=== PATIENT | female | born 1960 | race Caucasian/White ===

== ENCOUNTER → 2018-03-11 13:42 | Outpatient (CLI) | payer OTHER, SELFPAY ==
--- NOTE | 2018-03-11 15:23 | XR_ITS ---
XR knee RT 4V HISTORY: Knee pain ITS.REASON: pain ORDERING PHYSICIAN: Jaylene Padgett PATIENT AGE: 57 years COMPARISON: 08/16/2015 FINDINGS: There are severe osteoarthritic changes of the medial compartment with moderate osteoarthritic change of the lateral compartment and patellofemoral joint. There is loss of the joint space medially with prominent osteophytes. Small osteophyte is present along the lateral tibial plateau and lateral femoral condyle. No fracture or dislocation. No lytic or blastic change. IMPRESSION: Severe osteoarthritis of the right knee
--- NOTE | 2018-03-11 15:23 | XR_ITS ---
EXAM: XR lumbar spine 2-3V HISTORY: Low back pain ITS.REASON: pain ORDERING PHYSICIAN: Jaylene Padgett PATIENT AGE: 57 years FINDINGS: Normal alignment. No fracture or dislocation. Mild facet arthritic changes are present at L5-S1 on the left. There are small anterior osteophytes involving the lumbar vertebra. IMPRESSION: Mild lumbar spondylosis with facet arthritic change and small endplate osteophytes. No significant change from 08/07/2016
[2018-03-11 16:09] LABS: Hemoglobin A1C 5.4 % (0.0-7.0)
== END ==
PROVIDERS: Visit Provider Nurse Practitioner Family
DX: N23 Unspecified renal colic (principal); R53.83 Other fatigue; M17.11 Unilateral primary osteoarthritis, right knee; M25.561 Pain in right knee; M54.9 Dorsalgia, unspecified
CPT/HCPCS: 36415; 72100; 73564; 83036; 87077; 87086; 87088; 87186

== ENCOUNTER → 2018-03-19 15:30 | Outpatient (CLI) | payer OTHER, SELFPAY ==
--- NOTE | 2018-03-19 15:32 | US_ITS ---
US extremity RT limited CLINICAL INDICATION: ITS.REASON: pain ORDERING PHYSICIAN: Jaylene Padgett PATIENT AGE: 57 years COMPARISON: 03/11/2018 FINDINGS: General survey is performed of both the anterior and posterior aspect of the knee showing no obvious fluid collection. No obvious soft tissue mass or other significant anomalies. IMPRESSION: Negative limited ultrasound of the left knee. No Batres's cyst or other fluid collection evident
== END ==
PROVIDERS: Family Provider Physician Assistant; PCP Nurse Practitioner Family; Visit Provider Nurse Practitioner Family
DX: M71.21 Synovial cyst of popliteal space [Baker], right knee (principal)
CPT/HCPCS: 76882

== ENCOUNTER → 2018-04-15 09:39 | Outpatient (CLI) | payer OTHER, SELFPAY ==
--- NOTE | 2018-04-15 10:24 | NVE_ITS ---
Venous Exam Indications: 729.5 Pain in limb. IMPRESSIONS No evidence of deep or superficial vein thrombosis involving the right lower extremity History: Right lower extremity pain. Risk factors: Current tobacco use. Hypertension. Obese. Patient denies trauma. States that she has a sharp pain in the popliteal area that radiates into mid posterior thigh. She says this pain has been gradually worsening over the course of 3 months. She works on her feet long hours and feels this makes the pain worse. Medications: Aspirin, 81 mg daily. Right lower extremity venous duplex evaluation. Doppler flow study including spectral analysis, color and ferguson scale imaging. Location: Vascular laboratory. Patient status: Outpatient. CRITICAL FINDINGS - Reported to: [facility] office - Read back and verified. - 04/15/18 - 11:00 - RLE negative for DVT or SVT Tables: Venous flow and imaging: + +-------+ + Location Overall Flow properties + +-------+ + Right common femoral Patent Normal phasicity; spontaneous; normal augmentation; compressible + +-------+ + Right saphenofemoral junction Patent Compressible + +-------+ + Right profunda femoral Patent Compressible + +-------+ + Right femoral Patent Normal phasicity; spontaneous; normal augmentation; compressible + +-------+ + Right greater saphenous Patent Normal phasicity; spontaneous; normal augmentation; compressible + +-------+ + Right popliteal Patent Normal phasicity; spontaneous; normal augmentation; compressible + +-------+ + Right posterior tibial Patent Compressible + +-------+ + Right peroneal Patent Compressible + +-------+ + Right gastrocnemius Patent Compressible + +-------+ + Right soleal Patent Compressible + +-------+ + (Report amended ) Electronically signed by: Lyle Arguello [id number]
== END ==
PROVIDERS: PCP Physician Assistant; Visit Provider Physician Assistant
DX: R10.9 Unspecified abdominal pain (principal); M25.861 Other specified joint disorders, right knee
CPT/HCPCS: 87086; 93971

== ENCOUNTER → 2018-04-28 08:06 | Outpatient (CLI) | payer OTHER, SELFPAY ==
--- NOTE | 2018-04-28 08:10 | MR_ITS ---
MR knee RT wo con HISTORY: ITS.REASON: swelling and pain behind right knee ORDERING PHYSICIAN: HARSHA Prieto PATIENT AGE: 57 years Comparison: 03/11/2018 TECHNIQUE: Standard multiplanar multiecho sequences are performed without contrast. FINDINGS: Motion artifact somewhat obscures fine detail. The anterior cruciate ligament is not visualized consistent with tear of the ACL. The posterior cruciate ligament and collateral ligaments have an unremarkable appearance. There are severe osteoarthritic changes of all 3 compartments greater in the medial compartment with severe thinning of the medial meniscus laterally with diffuse increased T2 signal of the body of the lateral meniscus but no definite meniscal tear. The patellar tendon and quadriceps tendon are intact. There is some thinning of the patellar cartilage consistent with chondromalacia patella with mild lateral patellar subluxation. There are severe osteoarthritic changes of the medial compartment with marked decrease in the joint space and osteosclerosis. Osteophyte formation is present at the medial and lateral femoral condyles is a prominent osteophyte projecting off of the posterior aspect of the proximal tibia toward the medial aspect of the medial femoral condyle as seen on the radiograph. There is a small knee joint effusion with small Batres's cyst. IMPRESSION: 1. Osteoarthritic changes involving all 3 compartments most severe at the medial compartment with associated knee joint effusion mainly in the suprapatellar region. 2. Suspect chronic tear of the ACL. 3. Thinning of the body medial meniscus with diffuse increased T2 signal but no definite tear. 4. Chondromalacia patella with mild lateral subluxation of the patella
== END ==
PROVIDERS: Family Provider Physician Assistant; PCP Physician Assistant; Visit Provider Physician Assistant
DX: M25.861 Other specified joint disorders, right knee (principal)
CPT/HCPCS: 73721

== ENCOUNTER → 2018-08-22 08:48 | Outpatient (CLI) | payer OTHER, SELFPAY ==
[2018-08-22 15:20] LABS: Amphetamine/Metha Screen,Urine Negative ng/mL (<1000); Barbiturates Screen,Urine Negative ng/mL (<200); Benzodiazepines Screen,Urine Negative ng/mL (<200); Cannabinoid Screen,Urine Positive ng/mL (<50); Cocaine Screen,Urine Negative ng/mL (<300); Methadone Screen,Urine Negative ng/mL (<300); Opiate Screen,Urine Negative ng/mL (<300); Phencyclidine Screen,Urine Negative ng/mL (<25)
== END ==
PROVIDERS: Visit Provider Nurse Practitioner Family
DX: Z79.899 Other long term (current) drug therapy (principal)
CPT/HCPCS: 80305

== ENCOUNTER → 2019-01-02 14:28 | Outpatient (CLI) | payer OTHER, SELFPAY ==
[2019-01-02 15:17] LABS: Amphetamine/Metha Screen,Urine Negative ng/mL (<1000); Barbiturates Screen,Urine Negative ng/mL (<200); Benzodiazepines Screen,Urine Negative ng/mL (<200); Cannabinoid Screen,Urine Positive ng/mL (<50); Cocaine Screen,Urine Negative ng/mL (<300); Methadone Screen,Urine Negative ng/mL (<300); Opiate Screen,Urine Negative ng/mL (<300); Phencyclidine Screen,Urine Negative ng/mL (<25)
== END ==
PROVIDERS: Visit Provider Nurse Practitioner Family
DX: Z79.899 Other long term (current) drug therapy (principal)
CPT/HCPCS: 80305

== ENCOUNTER → 2019-01-09 08:47 | Outpatient (CLI) | payer OTHER, SELFPAY ==
--- NOTE | 2019-01-09 08:54 | XR_ITS ---
XR knee RT 4V HISTORY: Right knee pain ITS.REASON: 4 views weightbearing ORDERING PHYSICIAN: Pernell Brown MD PATIENT AGE: 58 years COMPARISON: 03/11/2018 FINDINGS: Severe osteoarthritic changes are present at the medial compartment with moderate osteoarthritic changes of the lateral compartment and patellofemoral joint. Prominent osteophytes are noted involving all 3 compartments. No fracture or dislocation.. The medial osteoarthritic changes may be slightly worse with further decrease in the joint space. There is mild lateral tibial subluxation. IMPRESSION: Severe osteoarthritis of the knee at the medial compartment with prominent bony spurs
== END ==
PROVIDERS: PCP Physician Assistant; Visit Provider Orthopaedic Surgery
DX: M25.561 Pain in right knee (principal)
CPT/HCPCS: 73564

== ENCOUNTER → 2019-02-02 13:57 | Outpatient (CLI) | payer OTHER, SELFPAY ==
[2019-02-02 14:15] LABS: Basophils # 0.1 K/mm3 (0-0.2); Basophils % 0.7 % (0.1-2.0); Eosinophils # 0.2 K/mm3 (0.0-0.4); Eosinophils % 1.5 % (0.1-12.0); Hematocrit 44.8 % (37.0-47.0); Hemoglobin 15.2 g/dL (12.2-16.2); Lymphocytes # 3.3 K/mm3 (0.7-4.5); Lymphocytes % 32.1 % (10-50); Mean Corpuscular Hemoglobin 28.8 pg (27.0-31.2); Mean Corpuscular Volume 84.5 fl (81-99); Mean Platelet Volume 7.9 fl (7.4-10.4); Monocytes # 0.5 K/mm3 (0.1-1.0); Monocytes % 4.9 % (1.7-9.3); Neutrophils # 6.3 K/mm3 (1.8-7.8); Neutrophils % 60.8 % (37.0-80.0); Platelet Count 256 K/mm3 (142-424); Red Cell Distribution Width 13.7 % (11.5-17.5); White Blood Count 10.4 K/mm3 (4.8-10.8)
[2019-02-02 15:04] LABS: Alanine Aminotransferase 35 U/L (12-78); Albumin Level 3.8 gm/dL (3.4-5.0); Albumin/Globulin Ratio 0.9 (1.1-1.8); Alkaline Phosphatase 101 U/L (46-116); Anion Gap 16.2 mEq/L (5-15); Aspartate Amino Transferase 28 U/L (15-37); Bilirubin,Total 0.4 mg/dL (0.2-1.0); Blood Urea Nitrogen 13 mg/dL (7-18); Carbon Dioxide 29 mmol/L (21.0-32.0); Chloride 99 mmol/L (98-107); Cholesterol 227 mg/dL (140-200); Creatinine,Serum 0.78 mg/dL (0.55-1.02); Estimated Glomerular Filt Rate 76 ml/min (>60); GFR (African American) 92 ML/MIN (>60); Globulin 4.2 gm/dl (1.3-3.2); Glucose 98 mg/dL (74-106); HDL Cholesterol 57 mg/dL (29-89); LDL Cholesterol 150 mg/dL (0-130); Potassium 4.2 mmoL/L (3.5-5.1); Sodium 140 mmol/L (136-145); T4 (Thyroxine) 11.8 ug/dl (4.7-13.3); Thyroid Stimulating Hormone 2.41 uIU/ml (0.358-3.740); Triglycerides 100 mg/dL (30-200); VLDL Cholesterol 20 mg/dL (0-40)
[2019-02-02 15:26] LABS: Erythrocyte Sedimentation Rate 35 mm/hr (0-30)
[2019-02-04 08:43] LABS: Vitamin D 25 Hydroxy 32.1 ng/mL (30.0-100.0)
[2019-02-04 12:14] LABS: Anti-Centromere B Antibodies <0.2 AI (0.0-0.9); Anti-Jo-1 <0.2 AI (0.0-0.9); Anti-Smith Antibody <0.2 AI (0.0-0.9); Antichromatin Antibodies <0.2 AI (0.0-0.9); Antiscleroderma-70 Antibodies <0.2 AI (0.0-0.9); RNP Antibodies 1.5 AI (0.0-0.9); Sjogren's Anti-SS-A <0.2 AI (0.0-0.9); Sjogren's Anti-SS-B <0.2 AI (0.0-0.9)
[2019-02-04 13:26] LABS: Anti-DNA (DS) Ab Qn 1 IU/mL (0-9)
[2019-02-05 12:56] LABS: Anti-Cyclic Citrullinated Pept 11 units (0-19)
== END ==
PROVIDERS: Visit Provider Physician Assistant
DX: G89.29 Other chronic pain (principal); I10 Essential (primary) hypertension; M25.551 Pain in right hip; M25.552 Pain in left hip; M25.561 Pain in right knee; M25.562 Pain in left knee; R41.3 Other amnesia
CPT/HCPCS: 80053; 80061; 82652; 84436; 84443; 85025; 85651; 86140; 86200; 86225; 86235; 86431

== ENCOUNTER → 2019-02-03 07:44 | Outpatient (CLI) | payer OTHER, SELFPAY ==
--- NOTE | 2019-02-03 07:45 | CA_ITS ---
PROCEDURE: 2-D M-mode and color Doppler study INDICATIONS FOR THE TEST: Chest pain+ COPD Heart Murmur Tobacco Smoking+ Palpitations Fatigue Syncope Edema+ Hypertension+Diabetes Mellitus Rheumatic Fever SOB+LAZAR+Obesity+Hyperlipidemia Family History HD Additional History GERD, SVT, history of 2 ablations for tachy PATIENT INFORMATION HEIGHT: 65 WEIGHT: 260 GENDER: Female B/P: 140/82 2-D/M-MODE INTERPRETATION: 2-D MEASUREMENTS OBSERVED VALUES IN CMS Right Ventricular Dimension (RVDd) 1.6 Interventricular Septum (Thickness)(IVsd) 1.1 Left Ventricular Internal Dimensions(LVIDd) 5.0 Left Ventricular Posterior Wall (Thickness)(LVPWd) 1.0 Aortic Root 2.7 Aortic Cusp Separation 2.2 Left Atrial Dimensions (LAD) 4.0 2D 1. Left atrium is mildly enlarged, left ventricle is normal size, mild concentric left ventricular hypertrophy, visually estimated ejection fraction 55% with no regional wall motion abnormality. 2. The right atrium and right ventricle are normal size and contractility. 3. The aortic valve is minimally thickened and fibrosed. 4. The mitral and tricuspid valve are grossly normal. 5. The pulmonic valve is poorly visualized. 6. No significant pericardial effusion noted. DOPPLER INTERROGATION: Doppler interrogation of the aortic, mitral and tricuspid valvular presence of mild mitral and tricuspid regurgitation. Tricuspid regurgitation jet velocity is inadequate for calculation of the right ventricular systolic pressure, grade 1 diastolic dysfunction seen with tissue Doppler evidence of raised left atrial pressure. CONCLUSION: 1. Mildly enlarged left atrium, normal left ventricular size, mild concentric left ventricular hypertrophy, visually estimated ejection fraction 55% with no regional wall motion abnormality, grade 1 diastolic dysfunction seen with tissue Doppler evidence of raised left atrial pressure. 2. Mild mitral and tricuspid regurgitation 3. No significant pericardial effusion noted.
--- NOTE | 2019-02-03 07:45 | NM_ITS ---
CARDIOLITE SPECT MYOCARDIAL PERFUSION LEXISCAN, REST AND STRESS: History: Coronary artery disease, hypertension, hyperlipidemia, tobacco use, family history, chest pain, shortness of breath and fatigue Procedure: A she received a 0.4 mg of intravenous Lexiscan, resting heart rate was 68 bpm resting blood pressure 140/88, with Lexiscan maximum heart rate achieved was 90 bpm which is less than 85% of the maximum predicted heart rate and a blood pressure was 118/68. With Lexiscan patient complained of chest tightness. Electrocardiogram: Resting electrocardiogram showed sinus rhythm nonspecific ST-T changes, with Lexiscan there is additional1 mill[address] segment depression noted from the baseline EKG. The EKG portion of the Lexiscan Myoview is nondiagnostic due to baseline abnormal EKG. Cardiac stress and resting SPECT images: Cardiac stress and resting SPECT images were obtained using technetium 99 Myoview 30.9 mCi at stress and 10.8 mCi at rest. Gated SPECT further analysis of segmental wall motion and calculation of ejection fraction also done. Cardiac stress and resting SPECT images show uniform myocardial activity without segmental perfusion abnormality however there appears to be a wall motion abnormality involving the anteroapical wall which is moderately hypokinesis. Right ventricle is normal size and contractility. Computer derived ejection fraction is 48%. Conclusion: 1. The EKG portion of the Lexiscan Myoview is nondiagnostic. 2. No scintigraphic evidence of obvious reversible ischemia seen however there is a wall motion abnormality involving the anteroapical wall appears to be moderately hypokinetic. Right ventricle is normal size and contractility. Computer derived ejection fraction 48% segmental wall motion abnormality described above 3. Abnormal Lexiscan Myoview study segmental wall motion.
--- NOTE | 2019-02-03 08:08 | HMH.ITSHM ---
Current Home Medications as stated by this patient April Nagel or dental detail representative. []LEVOTHYROXINE LOSARTAN PREMARIN GABAPENTIN AMLODIPINE METOPROLOL
== END ==
PROVIDERS: PCP Physician Assistant; Visit Provider Internal Medicine Cardiovascular Disease
DX: R07.9 Chest pain, unspecified (principal); R06.00 Dyspnea, unspecified; I10 Essential (primary) hypertension; R06.83 Snoring; R40.0 Somnolence; R60.9 Edema, unspecified; R94.31 Abnormal electrocardiogram [ECG] [EKG]
CPT/HCPCS: 78452; 93017; 93306; A9502; J2785

== ENCOUNTER → 2019-03-04 13:06 | Outpatient (CLI) | payer OTHER, SELFPAY | PROVIDERS: PCP Physician Assistant; Visit Provider Internal Medicine Cardiovascular Disease | DX: G47.33 Obstructive sleep apnea (adult) (pediatric) (principal); G47.9 Sleep disorder, unspecified; R06.09 Other forms of dyspnea; R06.83 Snoring; R40.0 Somnolence | CPT/HCPCS: 95806 ==

== ENCOUNTER → 2019-03-13 13:29 | Outpatient (CLI) | payer OTHER, SELFPAY ==
[2019-03-13 16:58] LABS: Anion Gap 8.9 mEq/L (5-15); Blood Urea Nitrogen 22 mg/dL (7-18); Calcium 9.4 mg/dL (8.5-10.1); Carbon Dioxide 34 mmol/L (21.0-32.0); Chloride 98 mmol/L (98-107); Creatinine,Serum 1.21 mg/dL (0.55-1.02); Estimated Glomerular Filt Rate 46 ml/min (>60); GFR (African American) 55 ML/MIN (>60); Glucose 116 mg/dL (74-106); Potassium 3.9 mmoL/L (3.5-5.1); Sodium 137 mmol/L (136-145)
== END ==
PROVIDERS: Visit Provider Internal Medicine Cardiovascular Disease
DX: I11.9 Hypertensive heart disease without heart failure (principal); I25.10 Atherosclerotic heart disease of native coronary artery without angina pectoris; E78.2 Mixed hyperlipidemia; I10 Essential (primary) hypertension; I51.89 Other ill-defined heart diseases
CPT/HCPCS: 36415; 80048

== ENCOUNTER → 2019-05-07 15:17 | Outpatient (CLI) | payer OTHER, SELFPAY ==
--- NOTE | 2019-05-07 15:24 | XR_ITS ---
XR hip LT 2-3V w/pelvis HISTORY: ITS.REASON: left hip pain ORDERING PHYSICIAN: Pernell Brown MD PATIENT AGE: 58 years COMPARISON: None FINDINGS: No fracture or dislocation is evident. No significant degenerative change. No lytic or blastic change. Unremarkable soft tissues IMPRESSION: Negative hip
--- NOTE | 2019-05-07 15:24 | XR_ITS ---
XR hip RT 2-3V w/pelvis HISTORY: ITS.REASON: right hip pain ORDERING PHYSICIAN: Pernell Brown MD PATIENT AGE: 58 years COMPARISON: None FINDINGS: No fracture or dislocation is evident. No significant degenerative change. No lytic or blastic change. Unremarkable soft tissues IMPRESSION: Negative hip
--- NOTE | 2019-05-07 15:27 | XR_ITS ---
XR knee LT 4V HISTORY: ITS.REASON: LT KNEE PAIN ORDERING PHYSICIAN: Pernell Brown MD PATIENT AGE: 58 years COMPARISON: 08/16/2015. FINDINGS: There is further narrowing of the medial compartment with medial femoral condyle and tibial plateau spurring. There are stable lateral tibial plateau spur. Bone density is normal. There is a stable posterior superior patellar spur with mild narrowing of the patellofemoral joint space. There is no acute fracture or joint effusion. Also noted is a posterior spur from the tibia possibly medially which is unchanged. There is mild varus angulation. Impression: Progressive increased osteoarthritis as discussed above.
== END ==
PROVIDERS: PCP Physician Assistant; Visit Provider Orthopaedic Surgery
DX: M25.551 Pain in right hip (principal); M25.552 Pain in left hip; M25.562 Pain in left knee
CPT/HCPCS: 73502; 73564

== ENCOUNTER → 2019-05-18 14:32 | Outpatient (CLI) | payer OTHER, SELFPAY ==
[2019-05-18 16:52] LABS: Ferritin 200 ng/mL (8-388)
== END ==
PROVIDERS: Visit Provider Specialist
DX: E83.10 Disorder of iron metabolism, unspecified (principal); G25.81 Restless legs syndrome
CPT/HCPCS: 36415; 82728

== ENCOUNTER → 2019-08-13 17:59 | Outpatient (CLI) | payer OTHER, SELFPAY ==
[2019-08-13 19:02] LABS: Thyroid Stimulating Hormone 2.38 uIU/ml (0.358-3.740)
[2019-08-15 12:32] LABS: Vitamin D 25 Hydroxy 31.1 ng/mL (30.0-100.0)
== END ==
PROVIDERS: Visit Provider Nurse Practitioner Family
DX: R53.83 Other fatigue (principal); M25.50 Pain in unspecified joint
CPT/HCPCS: 82652; 84443; 87086

== ENCOUNTER → 2019-08-25 12:57 | Outpatient (CLI) | payer OTHER, SELFPAY ==
[2019-08-25 15:03] LABS: Anion Gap 12.1 mEq/L (5-15); Blood Urea Nitrogen 23 mg/dL (7-18); Calcium 9.6 mg/dL (8.5-10.1); Carbon Dioxide 30 mmol/L (21.0-32.0); Chloride 101 mmol/L (98-107); Creatinine,Serum 0.87 mg/dL (0.55-1.02); Estimated Glomerular Filt Rate 67 ml/min (>60); GFR (African American) 81 ML/MIN (>60); Glucose 117 mg/dL (74-106); Magnesium 1.6 mg/dL (1.4-2.2); Potassium 4.1 mmoL/L (3.5-5.1); Sodium 139 mmol/L (136-145)
== END ==
PROVIDERS: Visit Provider Nurse Practitioner Family
DX: E66.01 Morbid (severe) obesity due to excess calories (principal); R25.2 Cramp and spasm
CPT/HCPCS: 36415; 80048; 83735

== ENCOUNTER → 2020-03-24 09:07 | Outpatient (CLI) | payer MEDICAID, SELFPAY ==
--- NOTE | 2020-03-24 09:16 | XR_ITS ---
PROCEDURE: XR LUMBAR SPINE MIN 4V CLINICAL INDICATION: Low back pain COMPARISON: ABDPELW/O CT ABD PELVIS W/O CONTRAST from 06/23/2015 FINDINGS: Minimal lumbar curvature convex left. Normal alignment. No acute fracture or dislocation evident. There is facet arthritic changes at L4-5 and L5-S1 with bony hypertrophy greater on the left. No lytic or blastic change. Mild degenerative disc disease is present at L5-S1. mild bony endplate hypertrophic changes are present on the left at L1-L2 IMPRESSION: Facet arthritic changes at L4-5 and L5-S1 degenerative disc disease at L5-S1 and mild levocurvature of the lumbar spine Dictated by: Lyle Arguello MD 03/24/2020 11:44 Electronically signed by Lyle Arguello MD in [place] 03/24/2020 11:44
--- NOTE | 2020-03-24 09:22 | XR_ITS ---
PROCEDURE: XR KNEE RT 4V CLINICAL INDICATION: right knee pain COMPARISON: [id number] KNEE-4 OR 5 VIEWS-RT from 08/16/2015 [id number] KNEE-4 OR 5 VIEWS-LT from 08/16/2015 [id number] XR knee RT 4V from 03/11/2018 [id number] XR knee RT 4V from 01/09/2019 FINDINGS: Severe osteoarthritic changes involve the medial compartment of the right knee with moderate osteoarthritis of the lateral compartment and patellofemoral joint. There is mild lateral subluxation of the tibia of approximately 6 mm Other findings:Sclerosis noted at the proximal tibia with some deformity of the articular surface of the distal femur medially. IMPRESSION: Severe osteoarthritis of the right knee not significantly changed Dictated by: Lyle Arguello MD 03/24/2020 11:35 Electronically signed by Lyle Arguello MD in [place] 03/24/2020 11:35
--- NOTE | 2020-03-24 09:22 | XR_ITS ---
PROCEDURE: XR KNEE LT 4V CLINICAL INDICATION: left knee pain COMPARISON: [id number] KNEE-4 OR 5 VIEWS-RT from 08/16/2015 [id number] KNEE-4 OR 5 VIEWS-LT from 08/16/2015 [id number] XR knee RT 4V from 03/11/2018 [id number] XR knee RT 4V from 01/09/2019 FINDINGS: No fracture or dislocation. No lytic or blastic change. There is normal mineralization. There are severe osteoarthritic changes of the left knee worse at the medial compartment and patellofemoral joint Other findings:Prominent osteophytes are present at the distal femur and proximal tibia IMPRESSION: Severe osteoarthritis of the left knee which has progressed compared to the previous study Dictated by: Lyle Arguello MD 03/24/2020 10:32 Electronically signed by Lyle Arguello MD in [place] 03/24/2020 10:32
[2020-03-24 15:13] LABS: Basophils # 0.1 K/mm3 (0-0.2); Eosinophils # 0.2 K/mm3 (0.0-0.4); Eosinophils % 1.9 % (0.1-12.0); Hematocrit 45.5 % (37.0-47.0); Hemoglobin 14.5 g/dL (12.2-16.2); Lymphocytes # 3.5 K/mm3 (0.7-4.5); Lymphocytes % 34.2 % (10-50); Mean Corpuscular HGB Conc 31.9 g/dL (31.8-35.4); Mean Corpuscular Hemoglobin 29.1 pg (27.0-31.2); Mean Corpuscular Volume 91.5 fl (81-99); Monocytes # 0.6 K/mm3 (0.1-1.0); Monocytes % 6.2 % (1.7-9.3); Neutrophils # 5.7 K/mm3 (1.8-7.8); Neutrophils % 56.7 % (37.0-80.0); Platelet Count 252 K/mm3 (142-424); Red Blood Count 4.97 M/mm3 (4.20-5.40); Red Cell Distribution Width 14.3 % (11.5-17.5); White Blood Count 10.1 K/mm3 (4.8-10.8)
[2020-03-24 15:28] LABS: Alanine Aminotransferase 14 U/L (12-78); Albumin Level 4.3 g/dl (3.5-5.0); Albumin/Globulin Ratio 1.4 (1.1-1.8); Alkaline Phosphatase 93 U/L (38-126); Anion Gap 13.9 mEq/L (5-15); Aspartate Amino Transferase 26 U/L (14-36); Bilirubin,Total 0.3 mg/dl (0.2-1.3); Blood Urea Nitrogen 24 mg/dl (7-17); Carbon Dioxide 27 mmol/L (22.0-30.0); Chloride 95 mmol/L (98-107); Chol/HDL Ratio 2.3 (1-3.5); Cholesterol 170 mg/dl (140-200); Estimated Glomerular Filt Rate 86 ml/min (>60); GFR (African American) 104 ML/MIN (>60); Globulin 3.1 g/dL (1.3-3.2); Glucose 104 mg/dl (74-100); HDL Cholesterol 73 mg/dl (40-60); Potassium 3.9 mmoL/L (3.5-5.1); Sodium 132 mmol/L (136-145); Total Protein,Serum 7.4 g/dl (6.3-8.2); Triglycerides 100 mg/dl (30-150); VLDL Cholesterol 20 mg/dL (0-40)
[2020-03-24 15:45] LABS: T4 (Thyroxine) 10.4 ug/dl (5.53-11.0)
[2020-03-24 15:59] LABS: Thyroid Stimulating Hormone 3.32 uIU/mL (0.465-4.68)
[2020-03-26 08:42] LABS: Vitamin B12 363 pg/mL (232-1245); Vitamin D 25 Hydroxy 26.4 ng/mL (30.0-100.0)
== END ==
PROVIDERS: PCP Physician Assistant; Visit Provider Physician Assistant
DX: M54.5 Low back pain (principal); M25.562 Pain in left knee; M25.561 Pain in right knee; R41.3 Other amnesia
CPT/HCPCS: 72110; 73564; 80053; 80061; 82607; 82652; 84436; 84443; 85025

== ENCOUNTER 2020-04-14 11:00 | Outpatient (RCR) | payer MEDICAID, SELFPAY ==
--- NOTE | 2020-04-05 15:44 | HMH.PTOPEV ---
PT Outpatient Evaluation Rehab PT Outpatient Evaluation Start: 04/05/20 15:30 Freq: Status: Active Protocol: Document 04/05/20 15:30 DOROTHY (Rec: 04/05/20 15:44 DOROTHY [id number]) Electronically Signed By Alexandre Pennington, PT 04/05/20 15:30 Outpatient Therapy Subjective History Subjective History Pt reports h/o chronic LBP since 'I retired from [employer] in . Pt reports R>L sided LBP with intermittent R LE radicular s/s. Pt reports previous Xrays have revealed OA in the lumbar spine. Chief Complaint Pain,Stiff,Paresthesia, Weakness Symptom Type Ache,Sharp,Dull,Stabbing, Burning,Numbness,Tingling Symptoms Relieved By Rest/Positioning,Heat Symptoms Aggravated By Standing,Physical Activity Prior Functional Limitations Lifting,Housework Current Functional Limitations Lifting,Housework,Standing, Bending/Stooping Symptom Description Constant but Variable Level of pain today (0-10) 5 Pain scale - at its best (0-10) 5 Pain scale - at its worst (0-10) 7 Lumbopelvic Eval Posture Thoracic Spine Posture Standing Position Neutral Lumbar Spine Posture Standing Position Increased Lordosis Assistive device Assistive Devices None / NA Gait Observation General Gait Pattern Observation Antalgic Gait Palapation tenderness bilateral thoracic spinal tenderness Yes: 3/4 lumbar spinal tenderness Yes: 3/4 paraspinal tenderness Yes: 3/4 buttock tenderness Yes: 3/4 Lumbar/Sacral Palpation Findings Tenderness,Trigger Point, Muscle Guarding Accessory Movement T-spine Vertebrae Accessory Movements Central P/A Ismay that Elicit Symptoms T10 bilateral T11 bilateral T12 bilateral L-spine Vertebrae Accessory Movements Central P/A Ismay that Elicit Symptoms L2 bilateral L3 bilateral L4 bilateral L5 bilateral S1 bilateral Range of Motion Lumbar Spine Active Flexion Range of 0-60 Motion (degrees) Lumbar Spine Active Extension Range of 0-20 Motion (degrees) Left Lumbar Spine Lateral Flexion Active 0-30 Range of Motion (degrees) Right Lumbar Spine Lateral Flexion 0-30 Active Range of Motion (degrees) Lumbar Spine ROM Limitations Soft Tissue Tightness,Pain Manual Muscle Test Bilateral Knee Extension Strengt
== END 2020-04-14 11:05 | disposition home or self-care (01) ==
LOC: PT 11:00
PROVIDERS: PCP Physician Assistant; Visit Provider Physician Assistant
DX: M54.5 Low back pain (principal)
CPT/HCPCS: 97010; 97012; 97014; 97163; G0283

== ENCOUNTER → 2020-07-25 17:34 | Outpatient (CLI) | payer MEDICAID, SELFPAY ==
[2020-07-25 20:42] LABS: Erythrocyte Sedimentation Rate 45 mm/hr (0-30)
[2020-07-25 20:58] LABS: C-Reactive Protein 6.2 mg/L (0-4)
[2020-07-27 11:44] LABS: RA Latex Turbid. 20.3 IU/mL (0.0-13.9)
[2020-07-28 09:07] LABS: Anti-Cyclic Citrullinated Pept 5 units (0-19)
== END ==
PROVIDERS: Visit Provider Physician Assistant
DX: N39.0 Urinary tract infection, site not specified (principal); M25.551 Pain in right hip; M25.552 Pain in left hip
CPT/HCPCS: 85651; 86140; 86200; 86431; 87086

== ENCOUNTER → 2020-08-03 11:24 | Outpatient (CLI) | payer MEDICAID, SELFPAY | PROVIDERS: Visit Provider Physician Assistant | DX: N39.0 Urinary tract infection, site not specified (principal) | CPT/HCPCS: 87086 ==

== ENCOUNTER → 2020-08-23 11:32 | Outpatient (CLI) | payer MEDICAID, SELFPAY ==
[2020-08-23 12:15] VITALS: PULSE 69; PULSE 72
== END ==
PROVIDERS: PCP Physician Assistant; Visit Provider Nurse Practitioner Family
DX: R06.02 Shortness of breath (principal)
CPT/HCPCS: 94060; 94618; 94640; 94726; 94729

== ENCOUNTER → 2021-01-24 17:32 | Outpatient (CLI) | payer MEDICAID, SELFPAY ==
[2021-01-24 18:41] LABS: Benzodiazepines Screen,Urine Negative ng/ml (<200)
[2021-01-24 18:42] LABS: Amphetamine/Metha Screen,Urine Negative ng/ml (<1000); Barbiturates Screen,Urine Negative ng/ml (<200)
[2021-01-24 18:54] LABS: Cannabinoid Screen,Urine Positive ng/ml (<50)
[2021-01-24 18:55] LABS: Cocaine Screen,Urine Negative ng/ml (<300)
[2021-01-24 18:57] LABS: Methadone Screen,Urine Negative ng/ml (<300); Opiate Screen,Urine Negative ng/ml (<300)
[2021-01-24 18:58] LABS: Phencyclidine Screen,Urine Negative ng/ml (<25)
== END ==
PROVIDERS: Visit Provider Physician Assistant
DX: R30.9 Painful micturition, unspecified (principal); Z79.899 Other long term (current) drug therapy
CPT/HCPCS: 80305; 87086

== ENCOUNTER → 2021-03-22 11:41 | Outpatient (CLI) | payer MEDICAID, SELFPAY ==
--- NOTE | 2021-03-22 11:46 | XR_ITS ---
PROCEDURE: XR KNEE LT 4V CLINICAL INDICATION: left knee pain COMPARISON: CR [id number] XR knee RT 4V from 03/11/2018 CR [id number] XR knee RT 4V from 01/09/2019 DX XR KNEE LT 4V from 03/24/2020 DX XR KNEE RT 4V from 03/24/2020 FINDINGS: No acute fractures or dislocations. Tricompartmental moderate to severe osteo arthritis is noted with the osteophyte formation and joint space loss. There is mobp-ia-fahi appearance with subchondral sclerosis and cystic changes noted in the medial compartment. Mild medial subluxation of the knee joint. Bone density is normal. No significant suprapatellar joint effusion. Visualized soft tissues are otherwise unremarkable. IMPRESSION: Tricompartmental degenerative changes, worse in the medial compartment. Dictated by: Roxana Brown 03/22/2021 14:22 Roxana Brown in [place] 03/22/2021 14:22
--- NOTE | 2021-03-22 11:46 | XR_ITS ---
PROCEDURE: XR KNEE RT 4V CLINICAL INDICATION: right knee pain COMPARISON: CR [id number] XR knee RT 4V from 03/11/2018 CR [id number] XR knee RT 4V from 01/09/2019 DX XR KNEE LT 4V from 03/24/2020 DX XR KNEE RT 4V from 03/24/2020 FINDINGS: No acute fractures or dislocations. Moderate to severe tricompartmental degenerative changes with osteophyte formation is noted, worse in the medial compartment. [id number]-lu-sezl appearance with subchondral sclerosis is noted in the medial compartment. Mild medial subluxation. No suprapatellar joint effusion. No other soft tissue abnormality. IMPRESSION: Tricompartmental degenerative changes of the right knee joint, worse in the medial compartment. Dictated by: Roxana Brown 03/22/2021 14:24 Roxana Brown in [place] 03/22/2021 14:24
== END ==
PROVIDERS: PCP Physician Assistant; Visit Provider Orthopaedic Surgery
DX: M17.0 Bilateral primary osteoarthritis of knee
CPT/HCPCS: 73564

== ENCOUNTER 2021-05-24 10:42 | Emergency (ER) | payer MEDICAID, SELFPAY ==
[2021-05-24] VITALS (7 sets, daily range): BP systolic 161–223; BP diastolic 82–117; PULSE 53–65; RESP 14–18; TEMP 36.6; O2SAT 93–98; BMI 41.5
--- NOTE | 2021-05-24 11:02 | CT_ITS ---
PROCEDURE: CT HEAD/BRAIN WO CON CLINICAL INDICATION: headache, HTN, left sided weakness COMPARISON: CT HEADWO CT head/brain wo con from 01/02/2019 TECHNIQUE: Axial images obtained. All CT scans at the facility use one or more dose reduction, viz: automated exposure control, ma/kV adjustment per patient size (including targeted exams where dose is matched to indication, i.e. head), or iterative reconstruction technique. FINDINGS: No midline shift, mass effect, intracranial hemorrhage, hydrocephalus, or extra-axial fluid collection is evident. Low-density changes are present in the periventricular regions and may reflect ischemic gliotic change from microvascular disease. The calvarium has an unremarkable appearance. No mastoid effusion. There is mucosal thickening in a posterior left ethmoid air cell IMPRESSION: No change with no acute intracranial finding Dictated by: Lyle Arguello MD 05/24/2021 11:49 Lyle Arguello MD in [place] 05/24/2021 11:49
--- NOTE | 2021-05-24 11:02 | XR_ITS ---
PROCEDURE: XR CHEST PORTABLE CLINICAL HISTORY: soa COMPARISON: No exams were available for comparison FINDINGS: Mild cardiomegaly without failure. The lungs are clear without infiltrates, suspicious nodules, or pleural effusions. No acute bony abnormalities. IMPRESSION: Mild cardiomegaly otherwise negative Dictated by: Lyle Arguello MD 05/24/2021 11:51 Lyle Arguello MD in [place] 05/24/2021 11:51
--- NOTE | 2021-05-24 11:11 | HMH.EDGENADL ---
ED Disposition Clinical Impression: Tension headache Hypertension Qualifiers: Hypertension type: primary hypertension Qualified Code(s): I10 - Essential (primary) hypertension Disposition: Home, Self-Care Condition on Discharge: Good Instructions: DI for Headache Additional Instructions: You were given 10 mg amlodipine and 25 mg hydrocholorthiaze today along with the lisinopril you took at home. Return with any concerns. Referrals: María Membreno PA [Primary Care Provider] - - Critical Care Critical Care Time: No Attestation: On 05/24/21, the high probability of a clinically significant, sudden or life threatening deterioration of the following system(s) required my full and direct attention, intervention and personal management. The time I documented below is in addition to time spent performing reported procedures but includes the following listed in this critical care notation. Medical Decision Making - Medical Records Medical records reviewed: Yes: I reviewed the patient's medical records. - Rei Inquiry Pt receiving controlled substance: No Vital Signs: 05/24/21 10:44 05/24/21 11:01 05/24/21 11:18 Temperature Temperature Source Pulse Rate 62 59 L Pulse Rate [Left Radial] 65 Respiratory Rate 18 14 16 Blood Pressure 212/110 H 205/104 H Blood Pressure [Right Arm] 223/117 H Blood Pressure Mean 144 137 Blood Pressure Mean [Right Arm] 152 Blood Pressure Source [Right Arm] Automatic Cuff Blood Pressure Position [Right Arm] Sitting 02 Sat by Pulse Oximetry 96 95 93 L Oxygen Delivery Method Room Air 05/24/21 11:31 05/24/21 12:03 05/24/21 12:18 Temperature Temperature Source Pulse Rate 55 L 56 L 53 L Pulse Rate [Left Radial] Respiratory Rate 17 Blood Pressure 168/102 H 201/115 H 171/82 H Blood Pressure [Right Arm] Blood Pressure Mean 143 128 128 Blood Pressure Mean [Right Arm] Blood Pressure Source [Right Arm] Blood Pressure Position [Right Arm] 02 Sat by Pulse Oximetry 95 95 96 Oxygen Delivery Method 05/24/21 13:00 Temperature 98 F Temperature Source Oral Pulse Rate 56 L Pulse Rate [Left Radial] Respiratory Rate 16 Blood Pressure 161/85 H Blood Pressure [Right Arm] Blood Pressure Mean Blood Pressure Mean [Right Arm] Blood Pressure Source [Right Arm] Blood Pressure Position [Right Arm] 02 Sat by Pulse Oximetry Oxygen Delivery Method Room Air - Lab Data Lab Results 05/24/21 11:15: WBC 9.1, RBC 4.72, Hgb 13.8, Hct 39.9, MCV 84.6, MCH 29.2, MCHC 34.4, RDW 14.4, Plt Count 196, MPV 7.5, Neut % (Auto) 65.5, Lymph % (Auto) 25.3, [place] % (Auto) 5.5, Eos % (Auto) 2.8, Baso % (Auto) 1.0, Neut # (Auto) 5.9, Lymph # (Auto) 2.3, [place] # (Auto) 0.5, Eos # (Auto) 0.3, Baso # (Auto) 0.1 05/24/21 11:15: Sodium 139, Potassium 4.2, Chloride 103, Carbon Dioxide 28, Anion Gap 12.2, BUN 15, Creatinine 0.70, Estimated Creat Clear 78, Estimated GFR 86, Est GFR ( Amer) 104, Glucose 111 H, Calcium 9.1, Total Bilirubin 0.6, AST 29, ALT 27, Alkaline Phosphatase 96, Troponin I < 0.01, Total Protein 7.2, Albumin 4.1, Globulin 3.1, Albumin/Globulin Ratio 1.3, TSH 3.00 05/24/21 11:15: PT 10.7, INR 0.90 Result diagrams: 05/24/21 11:15 05/24/21 11:15 Orders (Tests/Meds): ED MEDICATIONS Discontinued Medications Generic Name Dose Route Start Last Admin Trade Name Moody PRN Reason Stop Dose Admin Acetaminophen 1,000 mg 05/24/21 11:05 05/24/21 11:18 Acetaminophen 500mg Tab PO 05/24/21 11:06 1,000 mg ONCE ONE Administration Amlodipine Besylate 10 mg 05/24/21 11:15 05/24/21 11:17 Amlodipine 10mg Tablet PO 06/23/21 11:14 10 mg DAILY MITESH Administration Hydrochlorothiazide 25 mg 05/24/21 11:15 05/24/21 11:17 Hydrochlorothiazide 25mg Tablet PO 06/23/21 11:14 25 mg DAILY MITESH Administration ORDERS Category Date Time Status XR chest portable Stat Exams 05/24/21 11:02 Taken Medical Decision Narrativ
[2021-05-24 11:24] LABS: Basophils # 0.1 K/mm3 (0-0.2); Eosinophils # 0.3 K/mm3 (0.0-0.4); Eosinophils % 2.8 % (0.1-12.0); Hematocrit 39.9 % (37.0-47.0); Hemoglobin 13.8 g/dL (12.2-16.2); Lymphocytes # 2.3 K/mm3 (0.7-4.5); Lymphocytes % 25.3 % (10-50); Mean Corpuscular HGB Conc 34.4 g/dL (31.8-35.4); Mean Corpuscular Hemoglobin 29.2 pg (27.0-31.2); Mean Corpuscular Volume 84.6 fl (81-99); Mean Platelet Volume 7.5 fl (7.4-10.4); Monocytes # 0.5 K/mm3 (0.1-1.0); Monocytes % 5.5 % (1.7-9.3); Neutrophils # 5.9 K/mm3 (1.8-7.8); Neutrophils % 65.5 % (37.0-80.0); Platelet Count 196 K/mm3 (142-424); Red Blood Count 4.72 M/mm3 (4.20-5.40); Red Cell Distribution Width 14.4 % (11.5-17.5); White Blood Count 9.1 K/mm3 (4.8-10.8)
[2021-05-24 11:39] LABS: Alanine Aminotransferase 27 U/L (12-78); Albumin Level 4.1 g/dl (3.5-5.0); Albumin/Globulin Ratio 1.3 (1.1-1.8); Alkaline Phosphatase 96 U/L (38-126); Anion Gap 12.2 mEq/L (5-15); Aspartate Amino Transferase 29 U/L (14-36); Bilirubin,Total 0.6 mg/dl (0.2-1.3); Blood Urea Nitrogen 15 mg/dl (7-17); Calcium 9.1 mg/dl (8.4-10.2); Carbon Dioxide 28 mmol/L (22.0-30.0); Chloride 103 mmol/L (98-107); Creatinine Clearance Estimated 78 mL/min (50-200); Estimated Glomerular Filt Rate 86 ml/min (>60); GFR (African American) 104 ML/MIN (>60); Globulin 3.1 g/dL (1.3-3.2); Glucose 111 mg/dl (74-100); Potassium 4.2 mmoL/L (3.5-5.1); Sodium 139 mmol/L (136-145); Total Protein,Serum 7.2 g/dl (6.3-8.2)
[2021-05-24 11:43] LABS: Prothrombin Time 10.7 seconds (10.1-12.5)
[2021-05-24 11:53] LABS: Troponin I < 0.01 ng/ml (0.00-0.034)
== END 2021-05-24 13:04 | disposition home or self-care (01) ==
PROVIDERS: Emergency Provider Emergency Medicine; PCP Physician Assistant
DX: G44.209 Tension-type headache, unspecified, not intractable (principal); I10 Essential (primary) hypertension; E03.9 Hypothyroidism, unspecified; F41.8 Other specified anxiety disorders; E78.5 Hyperlipidemia, unspecified; K21.9 Gastro-esophageal reflux disease without esophagitis; Z87.891 Personal history of nicotine dependence; Z79.899 Other long term (current) drug therapy
CPT/HCPCS: 70450; 71045; 80053; 84443; 84484; 85025; 85610; 99283

== ENCOUNTER → 2021-05-24 13:00 | Outpatient (CLI) | payer MEDICAID, SELFPAY ==
--- NOTE | 2021-05-24 10:52 | ECG_ITS ---
APPROVED REPORT Exam: Resting ECG HR:62 bpm ECG Measurements Heart Rate 62 AXES TX 136 P 24 QRSd 90 QRS 18 QT 430 T 51 QTc 436 Conclusion Normal sinus rhythm Normal ECG Electronically signed by : James Ghotra, 05/24/2021 21:35:26
--- NOTE | 2021-05-24 13:07 | XR_ITS ---
PROCEDURE: XR SHOULDER LT MIN 2V CLINICAL INDICATION: left shoulder pain COMPARISON: No exams were available for comparison FINDINGS: There are mild osteoarthritic changes the glenohumeral and acromioclavicular joint. No significant subacromial stenosis evident. There is cortical regularity at the greater tuberosity which may be seen with rotator cuff disease. No fracture or dislocation. No lytic or blastic change IMPRESSION: Osteoarthritic change. Cortical regularity of the greater tuberosity may be seen with rotator cuff disease Dictated by: Lyle Arguello MD 05/24/2021 14:20 Lyle Arguello MD in [place] 05/24/2021 14:20
--- NOTE | 2021-05-24 13:07 | XR_ITS ---
PROCEDURE: XR SHOULDER RT MIN 2V CLINICAL INDICATION: right shoulder pain COMPARISON: No exams were available for comparison FINDINGS: There are severe osteoarthritic changes of the acromioclavicular joint with bony hypertrophy along the undersurface of the a chromium and mild subacromial stenosis. There are mild osteoarthritic changes of the glenohumeral joint and minimal cortical regularity of the greater tuberosity. No fracture or dislocation. No lytic or blastic change. IMPRESSION: Osteoarthritic changes of the acromioclavicular and glenohumeral joint with mild subacromial stenosis and minimal cortical regularity of the greater tuberosity of the humerus which may be seen with rotator cuff disease Dictated by: Lyle Arguello MD 05/24/2021 14:21 Lyle Arguello MD in [place] 05/24/2021 14:21
== END ==
PROVIDERS: PCP Physician Assistant; Visit Provider Orthopaedic Surgery
DX: M25.512 Pain in left shoulder (principal); M25.511 Pain in right shoulder
CPT/HCPCS: 73030; 93005

== ENCOUNTER → 2021-10-26 13:54 | Outpatient (CLI) | payer MEDICAID, SELFPAY | PROVIDERS: Visit Provider Family Medicine | DX: N39.0 Urinary tract infection, site not specified (principal) | CPT/HCPCS: 87086 ==

== ENCOUNTER → 2022-01-17 15:23 | Outpatient (CLI) | payer MEDICAID, SELFPAY | PROVIDERS: Visit Provider Nurse Practitioner Family | DX: N76.0 Acute vaginitis (principal) | CPT/HCPCS: 87210 ==

== ENCOUNTER → 2022-01-31 17:00 | Outpatient (CLI) | payer MEDICAID, SELFPAY ==
[2022-01-31 20:25] LABS: Basophils # 0.1 K/mm3 (0-0.2); Basophils % 0.9 % (0.1-2.0); Eosinophils # 0.1 K/mm3 (0.0-0.4); Eosinophils % 1.3 % (0.1-12.0); Hematocrit 43.5 % (37.0-47.0); Hemoglobin 14.5 g/dL (12.2-16.2); Lymphocytes % 28.8 % (10-50); Mean Corpuscular HGB Conc 33.3 g/dL (31.8-35.4); Mean Corpuscular Hemoglobin 30.5 pg (27.0-31.2); Mean Corpuscular Volume 91.6 fl (81-99); Mean Platelet Volume 9.5 fl (7.4-10.4); Monocytes # 0.5 K/mm3 (0.1-1.0); Neutrophils # 6.6 K/mm3 (1.8-7.8); Platelet Count 207 K/mm3 (142-424); Red Blood Count 4.75 M/mm3 (4.20-5.40); Red Cell Distribution Width 14.2 % (11.5-17.5); White Blood Count 10.4 K/mm3 (4.8-10.8)
[2022-01-31 20:40] LABS: Chol/HDL Ratio 3.9 (1-3.5); Cholesterol 202 mg/dl (140-200); HDL Cholesterol 52 mg/dl (40-60); Triglycerides 105 mg/dl (30-150); VLDL Cholesterol 21 mg/dL (0-40)
[2022-01-31 20:51] LABS: Direct LDL Cholesterol 113.42 mg/dL (100-129)
[2022-01-31 20:55] LABS: Hemoglobin A1C 5.5 % (4.0-6.0)
[2022-01-31 20:57] LABS: 25-OH Vitamin D, Total 64.9 ng/mL (30-100)
[2022-01-31 21:12] LABS: Thyroid Stimulating Hormone 1.46 uIU/mL (0.465-4.68)
== END ==
PROVIDERS: Visit Provider Nurse Practitioner Family
DX: R53.83 Other fatigue (principal); I10 Essential (primary) hypertension; E78.5 Hyperlipidemia, unspecified; E66.01 Morbid (severe) obesity due to excess calories; Z68.42 Body mass index [BMI] 45.0-49.9, adult
CPT/HCPCS: 80061; 82306; 83036; 84443; 85025

== ENCOUNTER → 2022-03-29 11:15 | Outpatient (CLI) | payer MEDICAID, SELFPAY ==
[2022-03-29 13:21] LABS: Basophils # 0.1 K/mm3 (0-0.2); Basophils % 1.2 % (0.1-2.0); Eosinophils # 0.1 K/mm3 (0.0-0.4); Eosinophils % 1.2 % (0.1-12.0); Hematocrit 44.8 % (37.0-47.0); Hemoglobin 15.2 g/dL (12.2-16.2); Lymphocytes # 2.7 K/mm3 (0.7-4.5); Lymphocytes % 24.8 % (10-50); Mean Corpuscular HGB Conc 33.8 g/dL (31.8-35.4); Mean Corpuscular Hemoglobin 30.9 pg (27.0-31.2); Mean Corpuscular Volume 91.2 fl (81-99); Mean Platelet Volume 8.7 fl (7.4-10.4); Monocytes # 0.7 K/mm3 (0.1-1.0); Monocytes % 6.1 % (1.7-9.3); Neutrophils # 7.1 K/mm3 (1.8-7.8); Neutrophils % 66.7 % (37.0-80.0); Platelet Count 253 K/mm3 (142-424); Red Blood Count 4.92 M/mm3 (4.20-5.40); Red Cell Distribution Width 14.4 % (11.5-17.5); White Blood Count 10.7 K/mm3 (4.8-10.8)
[2022-03-29 13:52] LABS: Alanine Aminotransferase 26 U/L (12-78); Albumin Level 4.2 g/dl (3.5-5.0); Albumin/Globulin Ratio 1.4 (1.1-1.8); Alkaline Phosphatase 103 U/L (38-126); Anion Gap 13.4 mEq/L (5-15); Aspartate Amino Transferase 25 U/L (14-36); Bilirubin,Total 0.2 mg/dl (0.2-1.3); Blood Urea Nitrogen 18 mg/dl (7-17); Calcium 9.5 mg/dl (8.4-10.2); Carbon Dioxide 27 mmol/L (22.0-30.0); Chloride 100 mmol/L (98-107); Chol/HDL Ratio 3.9 (1-3.5); Cholesterol 222 mg/dl (140-200); Estimated Glomerular Filt Rate 102 ml/min (>60); GFR (African American) 123 ML/MIN (>60); Globulin 2.9 g/dL (1.3-3.2); Glucose 109 mg/dl (74-100); HDL Cholesterol 57 mg/dl (40-60); Potassium 4.4 mmoL/L (3.5-5.1); Sodium 136 mmol/L (136-145); Total Protein,Serum 7.1 g/dl (6.3-8.2); Triglycerides 98 mg/dl (30-150); VLDL Cholesterol 20 mg/dL (0-40)
[2022-03-29 14:05] LABS: Direct LDL Cholesterol 130.08 mg/dL (100-129)
[2022-03-29 14:23] LABS: Thyroid Stimulating Hormone 2.24 uIU/mL (0.465-4.68)
[2022-03-29 14:33] LABS: 25-OH Vitamin D, Total 77.9 ng/mL (30-100)
[2022-03-29 14:51] LABS: Vitamin B12 528 pg/mL (239-931)
== END ==
PROVIDERS: PCP Physician Assistant; Visit Provider Physician Assistant
DX: R53.1 Weakness (principal); R07.9 Chest pain, unspecified; R42 Dizziness and giddiness; R53.83 Other fatigue; H53.8 Other visual disturbances; E66.3 Overweight; Z68.31 Body mass index [BMI] 31.0-31.9, adult
CPT/HCPCS: 80053; 80061; 82306; 82607; 83036; 84443; 85025

== ENCOUNTER → 2022-12-14 10:31 | Outpatient (CLI) | payer MEDICAID, SELFPAY ==
--- NOTE | 2022-12-14 10:35 | XR_ITS ---
FINAL REPORT CLINICAL HISTORY: knee pain COMPARISON: 03/22/2021 FINDINGS: Three views of the right knee reveal no evidence of fracture or dislocation. The bony alignment is normal. There are moderate and severe degenerative changes. There is severe medial compartment narrowing. There is a small joint effusion. Posterior loose bodies are noted. IMPRESSION: No significant change from prior study. Reviewed, Interpreted and Dictated by Juice Pérez III, MD Transcribed by Jessica Restrepo Authenticated and [facility]
--- NOTE | 2022-12-14 10:35 | XR_ITS ---
FINAL REPORT CLINICAL HISTORY: knee pain COMPARISON: 03/22/2021 FINDINGS: Three views of the left knee reveal no evidence of fracture or dislocation. The bony alignment is normal. There are moderate degenerative changes. There is medial joint compartment narrowing. There is no evidence of joint effusion. Stable posterior loose bodies are noted measuring up to 7 mm. IMPRESSION: No significant change from prior study. Reviewed, Interpreted and Dictated by Juice Pérez III, MD Transcribed by Jessica Restrepo Authenticated and . [facility]
== END ==
PROVIDERS: PCP Physician Assistant; Visit Provider Orthopaedic Surgery
DX: M25.561 Pain in right knee (principal); M25.562 Pain in left knee
CPT/HCPCS: 73562

== ENCOUNTER → 2023-01-04 13:57 | Outpatient (CLI) | payer MEDICAID, SELFPAY ==
--- NOTE | 2023-01-04 14:00 | XR_ITS ---
FINAL REPORT CLINICAL HISTORY: shoulder pain COMPARISON: 05/24/2021 FINDINGS: RIGHT SHOULDER Three views demonstrate no acute fracture or dislocation. Degenerative changes are seen of the acromioclavicular and glenohumeral joints, unchanged from prior exam. Soft tissues are unremarkable. IMPRESSION: Stable, degenerative changes without acute bony abnormality. Reviewed, Interpreted and Dictated by Juice Pérez III, MD Transcribed by Ebony Franco Authenticated and [facility]
--- NOTE | 2023-01-04 14:00 | XR_ITS ---
FINAL REPORT CLINICAL HISTORY: Left shoulder pain COMPARISON: 05/24/2021 FINDINGS: LEFT SHOULDER 3 views of the left shoulder were obtained. There is no acute fracture or dislocation. There are stable degenerative changes of the acromioclavicular and glenohumeral joints.. Soft tissues are unremarkable. IMPRESSION: Stable degenerative changes without acute bony abnormality. Reviewed, Interpreted and Dictated by Juice Pérez III, MD Transcribed by Ebony Franco Authenticated and [facility]
== END ==
PROVIDERS: PCP Physician Assistant; Visit Provider Orthopaedic Surgery
DX: M25.512 Pain in left shoulder (principal); M25.511 Pain in right shoulder
CPT/HCPCS: 73030

== ENCOUNTER → 2023-01-09 15:39 | Outpatient (CLI) | payer MEDICAID, SELFPAY ==
[2023-01-09 18:58] LABS: Basophils # 0.1 K/mm3 (0-0.2); Basophils % 0.6 % (0.1-2.0); Eosinophils % 0.2 % (0.1-12.0); Hematocrit 43.2 % (37.0-47.0); Hemoglobin 14.1 g/dL (12.2-16.2); Lymphocytes # 3.9 K/mm3 (0.7-4.5); Lymphocytes % 20.9 % (10-50); Mean Corpuscular HGB Conc 32.8 g/dL (31.8-35.4); Mean Corpuscular Hemoglobin 28.9 pg (27.0-31.2); Mean Corpuscular Volume 88.2 fl (81-99); Mean Platelet Volume 8.8 fl (7.4-10.4); Monocytes # 0.8 K/mm3 (0.1-1.0); Monocytes % 4.4 % (1.7-9.3); Neutrophils # 13.9 K/mm3 (1.8-7.8); Platelet Count 313 K/mm3 (142-424); Red Blood Count 4.89 M/mm3 (4.20-5.40); Red Cell Distribution Width 14.6 % (11.5-17.5); White Blood Count 18.8 K/mm3 (4.8-10.8)
[2023-01-09 19:01] LABS: MANUAL DIFFERENTIAL MANUAL DIFFERENTIAL (MANUAL DIFF)
[2023-01-09 19:03] LABS: Alanine Aminotransferase 37 U/L (12-78); Albumin Level 4.1 g/dl (3.5-5.0); Albumin/Globulin Ratio 1.5 (1.1-1.8); Alkaline Phosphatase 101 U/L (38-126); Anion Gap 11.8 mEq/L (5-15); Aspartate Amino Transferase 30 U/L (14-36); Bilirubin,Total 0.5 mg/dl (0.2-1.3); Blood Urea Nitrogen 34 mg/dl (7-17); Calcium 9.3 mg/dl (8.4-10.2); Carbon Dioxide 26 mmol/L (22.0-30.0); Chloride 98 mmol/L (98-107); Chol/HDL Ratio 2.7 (1-3.5); Cholesterol 162 mg/dl (140-200); Estimated Glomerular Filt Rate 56 ml/min (>60); GFR (African American) 68 ML/MIN (>60); Globulin 2.8 g/dL (1.3-3.2); Glucose 159 mg/dl (74-100); HDL Cholesterol 60 mg/dl (40-60); Magnesium 1.9 mg/dl (1.6-2.3); Potassium 3.8 mmoL/L (3.5-5.1); Sodium 132 mmol/L (136-145); Total Protein,Serum 6.9 g/dl (6.3-8.2); Triglycerides 110 mg/dl (30-150); VLDL Cholesterol 22 mg/dL (0-40)
[2023-01-09 19:17] LABS: Direct LDL Cholesterol 80.12 mg/dL (100-129)
[2023-01-09 19:22] LABS: 25-OH Vitamin D, Total 61.5 ng/mL (30-100)
[2023-01-09 19:35] LABS: Thyroid Stimulating Hormone 2.74 uIU/mL (0.465-4.68)
[2023-01-09 19:54] LABS: Vitamin B12 491 pg/mL (239-931)
[2023-01-09 20:46] LABS: Lymphocytes % 27 % (10-50); Neutrophils % 73 % (42-76); Total Cells Counted 100
[2023-01-09 20:47] LABS: Platelet Estimate Normal; RBC Morphology Normal
[2023-01-10 10:47] LABS: Hemoglobin A1C 6.2 % (4.0-6.0)
== END ==
PROVIDERS: PCP Physician Assistant; Visit Provider Physician Assistant
DX: Z00.00 Encounter for general adult medical examination without abnormal findings (principal); R10.9 Unspecified abdominal pain; E66.01 Morbid (severe) obesity due to excess calories; Z68.42 Body mass index [BMI] 45.0-49.9, adult
CPT/HCPCS: 80053; 80061; 82306; 82607; 83036; 83735; 84443; 85007; 85025; 87086

== ENCOUNTER → 2023-04-03 15:01 | Outpatient (CLI) | payer MEDICAID, SELFPAY ==
--- NOTE | 2023-04-03 15:06 | XR_ITS ---
FINAL REPORT CLINICAL HISTORY: right shoulder pain COMPARISON: 01/04/2023 FINDINGS: Right shoulder Three views were obtained. There is no acute fracture or dislocation. There are mild AC joint and glenohumeral joint degenerative change. No soft tissue abnormality is identified. IMPRESSION: Mild degenerative changes. Reviewed, Interpreted and Dictated by Juice Pérez III, MD Transcribed by Lola Forrester Authenticated and [facility]
== END ==
PROVIDERS: PCP Physician Assistant; Visit Provider Physician Assistant
DX: M25.511 Pain in right shoulder (principal)
CPT/HCPCS: 73030

== ENCOUNTER → 2023-04-03 18:54 | Outpatient (CLI) | payer MEDICAID, SELFPAY | PROVIDERS: PCP Physician Assistant; Visit Provider Physician Assistant | DX: R30.0 Dysuria (principal) | CPT/HCPCS: 87086 ==

== ENCOUNTER → 2023-04-24 13:40 | Outpatient (CLI) | payer MEDICAID, SELFPAY ==
--- NOTE | 2023-04-24 13:50 | MR_ITS ---
FINAL REPORT CLINICAL HISTORY: Right shoulder pain, limited ROM FINDINGS: Multiplanar MR imaging of the right shoulder was performed without contrast. There is artifact on most of the images which obscures some of the detail. There are complete tears of the distal supraspinatus and infraspinatus tendons, with retraction to the level of the humeral head. Mild acromioclavicular arthrosis is present. There is moderate fluid in the sub acromial subdeltoid bursa. The glenoid labrum is intact. The long head of the biceps tendon is intact. A moderate sized glenohumeral joint effusion is seen. There is no evidence of fracture or dislocation. There is mild supraspinatus and infraspinatus muscle atrophy present. There is superior subluxation of the proximal humerus. IMPRESSION: Complete tears of the distal supraspinatus and infraspinatus tendons, with retraction to the humeral head. There is also mild atrophy of the supraspinatus and infraspinatus muscles. Moderate fluid in the subacromial subdeltoid bursa and glenohumeral joint. There is superior subluxation of the humeral head. Reviewed, Interpreted and Dictated by Juice Pérez III, MD Transcribed by Constance Wiley Authenticated and [facility]
== END ==
PROVIDERS: PCP Physician Assistant; Visit Provider Physician Assistant
DX: M25.511 Pain in right shoulder (principal)
CPT/HCPCS: 73221

== ENCOUNTER → 2023-11-06 14:35 | Outpatient (CLI) | payer MEDICAID, SELFPAY ==
--- NOTE | 2023-11-06 14:39 | XR_ITS ---
FINAL REPORT CLINICAL HISTORY: lymphadenopathy COMPARISON: 05/24/2021 FINDINGS: TWO-VIEW CHEST The heart size is normal. The mediastinum is normal. There is scarring in the lung bases. There is no pneumothorax. IMPRESSION: No acute cardiopulmonary process. Reviewed, Interpreted and Dictated by Thaddeus Juarez MD Transcribed by Lola Forrester Authenticated and [facility]
[2023-11-06 15:29] LABS: Basophils # 0.1 K/mm3 (0-0.2); Basophils % 0.6 % (0.1-2.0); Eosinophils # 0.3 K/mm3 (0.0-0.4); Eosinophils % 2.6 % (0.1-12.0); Hematocrit 41.9 % (37.0-47.0); Hemoglobin 14.4 g/dL (12.2-16.2); Lymphocytes # 3.4 K/mm3 (0.7-4.5); Lymphocytes % 28.2 % (10-50); Mean Corpuscular HGB Conc 34.3 g/dL (31.8-35.4); Mean Corpuscular Hemoglobin 30.5 pg (27.0-31.2); Mean Corpuscular Volume 88.9 fl (81-99); Mean Platelet Volume 8.1 fl (7.4-10.4); Monocytes # 0.7 K/mm3 (0.1-1.0); Monocytes % 5.7 % (1.7-9.3); Neutrophils # 7.5 K/mm3 (1.8-7.8); Neutrophils % 62.9 % (37.0-80.0); Platelet Count 216 K/mm3 (142-424); Red Blood Count 4.71 M/mm3 (4.20-5.40)
[2023-11-06 16:21] LABS: Monoscreen (Rapid) Negative (Negative)
[2023-11-06 16:32] LABS: Alanine Aminotransferase 70 U/L (12-78); Albumin Level 4.1 g/dl (3.5-5.0); Albumin/Globulin Ratio 1.2 (1.1-1.8); Alkaline Phosphatase 83 U/L (38-126); Anion Gap 10.9 mEq/L (5-15); Aspartate Amino Transferase 70 U/L (14-36); Bilirubin,Total 0.4 mg/dl (0.2-1.3); Blood Urea Nitrogen 23 mg/dl (7-17); Calcium 9.3 mg/dl (8.4-10.2); Carbon Dioxide 28 mmol/L (22.0-30.0); Chloride 98 mmol/L (98-107); Chol/HDL Ratio 5.3 (1-3.5); Cholesterol 202 mg/dl (140-200); Estimated Glomerular Filt Rate 64 ml/min (>60); GFR (African American) 77 ML/MIN (>60); Globulin 3.3 g/dL (1.3-3.2); Glucose 106 mg/dl (74-100); HDL Cholesterol 38 mg/dl (40-60); Potassium 3.9 mmoL/L (3.5-5.1); Sodium 133 mmol/L (136-145); Total Protein,Serum 7.4 g/dl (6.3-8.2); Triglycerides 170 mg/dl (30-150); VLDL Cholesterol 34 mg/dL (0-40)
[2023-11-06 16:43] LABS: Direct LDL Cholesterol 126.87 mg/dL (100-129)
[2023-11-06 16:49] LABS: 25-OH Vitamin D, Total 80.8 ng/mL (30-100)
[2023-11-06 17:02] LABS: Thyroid Stimulating Hormone 5.04 uIU/mL (0.465-4.68)
[2023-11-06 17:21] LABS: Vitamin B12 634 pg/mL (239-931)
[2023-11-08 10:13] LABS: HIV Screen 4th Generation wRfx Non Reactive (Non Reactive)
[2023-11-08 14:15] LABS: EBV Ab VCA, IgG >600.0 U/mL (0.0-17.9); EBV Ab VCA, IgM <36.0 U/mL (0.0-35.9)
[2023-11-08 14:54] LABS: Peripheral Smear Review Scanned Result
[2023-11-09 18:19] LABS: IgG P18 Ab. Absent (.); IgG P23 Ab. Absent (.); IgG P28 Ab. Absent (.); IgG P30 Ab. Absent (.); IgG P39 Ab. Absent (.); IgG P41 Ab. Present (.); IgG P45 Ab. Absent (.); IgG P58 Ab. Absent (.); IgG P66 Ab. Absent (.); IgG P93 Ab. Present (.); IgM P23 Ab. Absent (.); IgM P39 Ab. Absent (.); IgM P41 Ab. Absent (.); Lyme IgG WB Interp. Negative (.); Lyme IgM WB Interp. Negative (.)
[2023-11-11 16:29] LABS: HBsAg Screen Negative (Negative); HCV Ab Reactive (Non Reactive); Hep A Ab, IGM Negative (Negative); Hep B Core Ab, IgM Negative (Negative)
[2023-11-12 10:09] LABS: Rapid Plasma Reagin Ab Titer Non Reactive titer (NonRea<1:1)
[2023-11-14 12:14] LABS: HSV 2 IgG, Type Spec 9.67
[2023-11-14 13:40] LABS: Miscellaneous Test SCANNED IMAGE
== END ==
PROVIDERS: PCP Physician Assistant; Visit Provider Physician Assistant
DX: R59.1 Generalized enlarged lymph nodes (principal); E66.01 Morbid (severe) obesity due to excess calories; Z68.43 Body mass index [BMI] 50.0-59.9, adult; R74.01 Elevation of levels of liver transaminase levels
CPT/HCPCS: 36415; 71046; 80053; 80061; 80074; 82306; 82607; 84443; 85025; 86318; 86406; 86593; 86617; 86664; 86665; 86695; 86703; 86777; 86778; 86790; G0432

== ENCOUNTER 2024-02-26 13:42 | Outpatient (CLI) | payer MEDICAID, SELFPAY | END 2024-02-26 23:59 | LOC: LAB.DROPOF 02-27 13:43 | PROVIDERS: PCP Nurse Practitioner Family; Visit Provider Nurse Practitioner Family | DX: N39.0 Urinary tract infection, site not specified (principal) | CPT/HCPCS: 87086 ==

== ENCOUNTER 2024-05-27 13:21 | Outpatient (CLI) | payer MEDICAID, SELFPAY ==
--- NOTE | 2024-05-27 13:25 | XR_ITS ---
FINAL REPORT CLINICAL HISTORY: knee pain COMPARISON: 12/14/2022 FINDINGS: AP, lateral and oblique views of the left knee were obtained. There is no acute osseous abnormality of the left knee. Degenerative joint disease is present, most severe in the medial compartment. These changes are stable. There is calcification of loose bodies in the posterior joint space. The soft tissues are normal. There is no joint effusion. IMPRESSION: No acute osseous abnormality of the left knee. Degenerative joint disease as described, most severe in the medial compartment. Reviewed, Interpreted and Dictated by Stephany Tomlin MD Transcribed by Constance Wiley Authenticated and [facility]
--- NOTE | 2024-05-27 13:25 | XR_ITS ---
FINAL REPORT CLINICAL HISTORY: knee pain COMPARISON: 12/14/2022 FINDINGS: AP, lateral and oblique views of the right knee were obtained. There is no acute osseous abnormality of the right knee. Degenerative change is present in the knee, most severe in the medial compartment. These changes are stable since the prior exam. There is a calcified posterior loose body in the joint space. The soft tissues are normal. There is no joint effusion. IMPRESSION: No acute osseous abnormality of the right knee. Degenerative change, most severe in the medial compartment as described, stable since the prior exam of 2022. Reviewed, Interpreted and Dictated by Stephany Tomlin MD Transcribed by Constance Wiley Authenticated and [facility]
[2024-05-27 18:40] LABS: Basophils # 0.1 K/mm3 (0-0.2); Basophils % 0.7 % (0.1-2.0); Eosinophils # 0.3 K/mm3 (0.0-0.4); Eosinophils % 2.2 % (0.1-12.0); Hemoglobin 14.7 g/dL (12.2-16.2); Lymphocytes # 3.3 K/mm3 (0.7-4.5); Lymphocytes % 23.8 % (10-50); Mean Corpuscular HGB Conc 33.4 g/dL (31.8-35.4); Mean Corpuscular Hemoglobin 30.4 pg (27.0-31.2); Mean Corpuscular Volume 91.1 fl (81-99); Mean Platelet Volume 8.9 fl (7.4-10.4); Monocytes # 0.7 K/mm3 (0.1-1.0); Monocytes % 4.8 % (1.7-9.3); Neutrophils # 9.4 K/mm3 (1.8-7.8); Neutrophils % 68.5 % (37.0-80.0); Platelet Count 259 K/mm3 (142-424); Red Blood Count 4.83 M/mm3 (4.20-5.40); Red Cell Distribution Width 14.6 % (11.5-17.5); White Blood Count 13.7 K/mm3 (4.8-10.8)
[2024-05-27 19:28] LABS: Alanine Aminotransferase 60 U/L (12-78); Albumin/Globulin Ratio 1.2 (1.1-1.8); Alkaline Phosphatase 95 U/L (38-126); Anion Gap 11.9 mEq/L (5-15); Aspartate Amino Transferase 61 U/L (14-36); Bilirubin,Total 0.7 mg/dl (0.2-1.3); Blood Urea Nitrogen 19 mg/dl (7-17); Carbon Dioxide 30 mmol/L (22.0-30.0); Chloride 97 mmol/L (98-107); Chol/HDL Ratio 4.1 (1-3.5); Cholesterol 181 mg/dl (140-200); Estimated Glomerular Filt Rate 56 ml/min (>60); GFR (African American) 68 ML/MIN (>60); Globulin 3.3 g/dL (1.3-3.2); Glucose 122 mg/dl (74-100); HDL Cholesterol 44 mg/dl (40-60); Potassium 3.9 mmoL/L (3.5-5.1); Sodium 135 mmol/L (136-145); Total Protein,Serum 7.3 g/dl (6.3-8.2); Triglycerides 149 mg/dl (30-150); VLDL Cholesterol 30 mg/dL (0-40)
[2024-05-27 19:39] LABS: Direct LDL Cholesterol 105.08 mg/dL (100-129)
[2024-05-27 19:42] LABS: 25-OH Vitamin D, Total 73.3 ng/mL (30-100)
[2024-05-27 19:59] LABS: Thyroid Stimulating Hormone 2.76 uIU/mL (0.465-4.68)
[2024-05-28 13:14] LABS: HIV (1&2) Antibody Rapid NON REACTIVE
[2024-06-01 13:09] LABS: HCV Ab Reactive (Non Reactive)
== END 2024-05-27 23:59 | disposition home or self-care (01) ==
LOC: RAD 13:22
PROVIDERS: Nurse Practitioner Family; PCP Physician Assistant; Visit Provider Orthopaedic Surgery
DX: R73.03 Prediabetes; N39.0 Urinary tract infection, site not specified; E66.9 Obesity, unspecified; Z68.43 Body mass index [BMI] 50.0-59.9, adult; M17.0 Bilateral primary osteoarthritis of knee
CPT/HCPCS: 73562; 80050; 80053; 80061; 82306; 83036; 84443; 85025; 87086

== ENCOUNTER 2024-09-14 10:07 | Day surgery (SDC) | payer MEDICAID, SELFPAY ==
[2024-09-09 15:22] VITALS: BMI 42.6
[2024-09-14] MEDS: LACTATED RINGERS 1000ML 1,000 ML 100 ML IV (10:52)
[2024-09-14 10:53] VITALS: BP 145/97; PULSE 89; RESP 18; TEMP 36.6; O2SAT 94
--- NOTE | 2024-09-14 11:14 | EXP.ANES.CKL ---
[facility] Disclaimer: The information contained in this section may have been updated after the patient was seen, as this information can be updated by other users. Medical History Tear of infraspinatus tendon Tear of supraspinatus tendon Shoulder pain Rheumatoid arthritis HHD (hypertensive heart disease) CAD (coronary artery disease) Memory loss Restless legs syndrome Bilateral knee pain Surgical History Hx of appendectomy Family History (Updated 09/14/24 @ 10:46 by Herlinda Becerra RN) Other Family history of hypertension Social History Smoking Status: Former smoker tobacco type: cigarettes packs per day: 1 alcohol intake: never substance use type: denies use current occupational status: employed Travel in the last 8 weeks: None household members: family housing: house current occupational exposures/hazards: No caffeine: No [facility] Anesthesia Checklist Patient Identification Patient Identification: Arm Band, Family and Verbal (Name & ) Structural Data Admitted From: Home Planned Operative Procedure/s: Colonoscopy Consent for Planned Operative Procedure(s) Verified: Yes Verified Documents: Surgical Consent and History and Physical NPO Status Verified Time NPO: 06:00 Chart Verification Results Verified: CBC, BMP, ECG and Chest Xray Additional verifications Patient : No Anesthesia Reactions: No Cardiovascular Assessment Heart Sounds: S1 & S2 Pulse Rhythm: Irregular Peripheral Edema: No Airway Assessment Mallampati Score:: Class I C-Spine Mobility Assessed: Yes (FROM demonstrated) TMJ Mobility Assessed: Yes Dentition: Good Dentition (Nothing loose per pt.) Neurological Assessment Level of Consciousness: Awake, Alert, Appropriate and Follows Commands Hx Seizures: No Numbness or tingling in extremities: No Anesthesia Plan Anesthesia Risk discussed: Yes Anesthesia Plan: Verified ASA Class: III Anesthesia Type: MAC
[2024-09-14 11:34] VITALS: O2SAT 94
--- NOTE | 2024-09-14 11:45 | P.HP_ITS ---
History of Present Illness *Admission Date: 09/14/24 *Reason for visit:: Screening *History of present illness: Mrs. Nagel is a 63-year-old female who is here for screening colonoscopy. Her last colonoscopy was 20 to 30 years ago. The examination is deemed medically necessary for colonoscopy. The patient has been seen, interviewed and examined prior to the procedure by both myself and the anesthesia provider. [facility] Disclaimer: The information contained in this section may have been updated after the patient was seen, as this information can be updated by other users. Medical History (Updated 09/14/24 @ 11:46 by Richar Gordon II, MD) Tear of infraspinatus tendon Tear of supraspinatus tendon Shoulder pain Rheumatoid arthritis HHD (hypertensive heart disease) CAD (coronary artery disease) Memory loss Restless legs syndrome Bilateral knee pain Surgical History Hx of appendectomy Family History (Updated 09/14/24 @ 10:46 by Herlinda Becerra RN) Other Family history of hypertension Social History Smoking Status: Former smoker tobacco type: cigarettes packs per day: 1 alcohol intake: never substance use type: denies use current occupational status: employed Travel in the last 8 weeks: None household members: family housing: house current occupational exposures/hazards: No caffeine: No Other Medical History Have you received the Flu Vaccine for this season: No Have you received the Pneumonia Vaccine: No Review of Systems Review of Systems Review of systems (narrative): Negative *Cardiovascular Comments: Negative *Gastrointestinal Comments: Negative *Genitourinary Comments: Negative *Musculoskeletal Comments: Negative *Neurologic Comments: Negative Meds Home Medications and Allergies Home Medications ?Medication ?Instructions ?Recorded ?Confirmed ?Type blood pressure kit-extra large #1 ea 04/24/21 09/01/24 Rx montelukast 10 mg tablet See Rx Instructions .Route 12/30/23 09/14/24 Rx .COMPLEX #90 tabs ergocalciferol (vitamin D2) 1,250 See Rx Instructions .Route 01/16/24 09/14/24 Rx mcg (50,000 unit) capsule (Vitamin .COMPLEX #14 caps D2) cholecalciferol (vitamin D3) 25 See Rx Instructions .Route 01/28/24 09/14/24 Rx mcg (1,000 unit) capsule (Vitamin .COMPLEX #90 caps D3) losartan 100 See Rx Instructions .Route 01/28/24 09/14/24 Rx mg-hydrochlorothiazide 25 mg tablet .COMPLEX #90 tabs omeprazole 40 mg capsule,delayed See Rx Instructions .Route 01/28/24 09/14/24 Rx release .COMPLEX #90 caps duloxetine 30 mg capsule,delayed 30 mg PO DAILY 02/26/24 09/14/24 History release duloxetine 60 mg capsule,delayed 60 mg PO DAILY 02/26/24 09/14/24 History release fluconazole 150 mg tablet 150 mg PO DAILY 3 days #3 tabs 02/26/24 09/01/24 Rx valacyclovir 1 gram tablet See Rx Instructions .Route 03/20/24 09/14/24 Rx .COMPLEX #180 tabs amlodipine 10 mg tablet See Rx Instructions .Route 06/18/24 09/14/24 Rx .COMPLEX #90 tabs gabapentin 600 mg tablet 600 mg PO TID #90 tabs 07/08/24 09/14/24 Rx nystatin 100,000 unit/gram topical 1 applic topical BID #30 grams 07/08/24 09/14/24 Rx cream albuterol sulfate 90 mcg/actuation See Rx Instructions .Route 08/07/24 09/14/24 Rx aerosol inhaler (Ventolin HFA) .COMPLEX #18 grams levothyroxine 50 mcg tablet See Rx Instructions .Route 08/18/24 09/14/24 Rx .COMPLEX #30 tabs oxybutynin chloride 5 mg See Rx Instructions .Route 09/05/24 09/14/24 Rx tablet,extended release 24 hr .COMPLEX #90 tabs aspirin 81 mg tablet 81 mg PO DAILY 09/14/24 09/14/24 History New Prescriptions to Start Prescriptions: Allergies Allergy/AdvReac Type Severity Reaction Status Date / Time Iodinated Contrast Media Allergy Severe Anaphylaxis Verified 09/14/24 10:47 [Iodinated Contrast Media - Oral and] Exam Data for Last 24 hours Vital signs and Labs for Last 24 Hours: Temp Pulse Resp BP Pulse Ox O2 Del Method 97.8 F 89 18 145/97 H 94 L Room Air 09/14/24 10:53 09/14/24 10:53 09/14/24 10:53 09/14/24 10:53 09/14/24 10:53 09/14/24 10:53 *Routine HEENT Exam Head: Present normocephalic Eye: Present EOMI and PERRL ENT: Present mucous membranes moist *Routine Neck Exam Neck: Present supple *Routine Respiratory Exam Respiratory: Present CTA bilaterally *Routine Cardiovascular Exam Cardiovascular: Present RRR *Routine Abdominal Exam Abdominal: Present soft and normoactive bowel sounds; Absent tenderness *Routine Rectal Exam Rectal:: deferred *Routine Genitalia Exam Genitalia:: deferred *Routine Extremities Exam Extremities: Absent cyanosis, clubbing or edema *Routine Skin Exam Skin: Present warm; Absent rash *Routine Neurological Exam Neurological: Present alert and oriented X3 Assessment and Plan *Assessment and plan (1) Screening for colon cancer: Status: Acute Category: Medical Code(s): Z12.11 - Encounter for screening for malignant neoplasm of colon Plan A/P: 1. Screening for colon cancer is the preprocedural diagnosis. The patient will be anesthetized/sedated using MAC sedation. The patient has been seen and examined. Cardiac and lung assessment prior to the examination is stable. Proceed with planned colonoscopy.
--- NOTE | 2024-09-14 11:46 | HMH.PROCNOTE ---
[facility] Procedure Note Date: 09/14/24 Time: 12:15 Procedure Note:: Colonoscopy Procedure Report: Colonoscopy with cold snare polypectomy Endoscopist: Richar Gordon II, MD Referring physician: María Membreno PA-C Date of Procedure: September 14, 2024 Equipment: Olympus 190 variable stiffness pediatric colonoscope Sedation: MAC sedation Indication: Mrs. Nagel is a 63-year-old female who is here for screening colonoscopy. She does state that her last colonoscopy was 20 to 30 years ago. She reports no rectal bleeding, change in her bowel habits, weight loss or family history of colon cancer. She does get some minor bloating and lower abdominal discomfort intermittently. Procedure: Prior to the procedure, a history and physical exam was performed, and patient's medications and allergies were reviewed. The risks, benefits and alternatives of the sedation and procedure were discussed with the patient. All questions were answered and informed consent was obtained. The patient was brought to the procedure room. Patient identification and proposed procedure were verified by the physician and the nurse. The patient was placed in a left lateral decubitus position and the scope was passed under direct vision. Throughout the procedure, the patient's blood pressure, pulse, and oxygen saturations were monitored continuously. The colonoscopy was accomplished without difficulty. The patient tolerated the procedure well. Findings: On digital rectal examination there was normal rectal tone. There were no external hemorrhoids. The colonoscope was introduced through the anal canal to the rectum and advanced to the cecum. The ileocecal valve and appendiceal orifice were identified. The scope was advanced a short distance into the ileum which appeared grossly normal. The scope was then withdrawn into the colon. There were 8 polyps (cecum x 1 (16 to 17 mm laterally spreading granular adenomatous polyp), ascending x 3 (4, 6 and 7 mm), transverse x 1 (5 mm) and descending x 3 (4, 4 and 5 mm)). These were all removed via cold snare polypectomy. The remaining cecum, ascending and transverse colon and mucosa were grossly normal. There were scattered diverticuli throughout the descending and sigmoid colon (LEFT colon). The rectum itself was normal. Upon retroflexion within the rectum there were grade 2 internal hemorrhoids. The preparation was fair throughout with [place] Preparation Score of 6-7 out of 9. Multiple washings were performed to cleanse the residue. The cecal time was 18 minutes. Impression: 1. Colonic polyps x 8 (ranging in size from 4 to 17 mm) 2. Left-sided diverticulosis 3. Grade 2 internal hemorrhoids Plan: I will follow-up the polyp histology and recommend repeat surveillance colonoscopy again in 3 years. I would encourage fiber supplementation/psyllium on a long-term daily maintenance basis. We will discuss dietary measures.
[2024-09-14 12:17] VITALS: BP 118/72; PULSE 72; RESP 18; TEMP 36.3; O2SAT 96
[2024-09-14 12:27] VITALS: BP 134/82; PULSE 77; RESP 16; O2SAT 97
[2024-09-14 12:37] VITALS: BP 130/95; PULSE 75; RESP 16; O2SAT 97
[2024-09-14 12:47] VITALS: BP 136/92; PULSE 76; RESP 16; O2SAT 97
== END 2024-09-14 12:53 | disposition home or self-care (01) ==
PROVIDERS: PCP Physician Assistant; Visit Provider Internal Medicine Gastroenterology
PROC: (CPT 45385; principal; 2024-09-14 12:00)
DX: K63.5 Polyp of colon (principal); K57.30 Diverticulosis of large intestine without perforation or abscess without bleeding; K64.1 Second degree hemorrhoids; Z12.11 Encounter for screening for malignant neoplasm of colon
CPT/HCPCS: 45385; J2704; J7120